=== PATIENT | female | born 1985 | race Caucasian/White ===

== ENCOUNTER 2018-02-16 08:58 | Outpatient (CLI) | payer OTHER ==
--- NOTE | 2018-02-16 10:37 | Ultrasound Report ---
ULTRASOUND PELVIC COMPLETE ULTRASOUND TRANSVAGINAL HISTORY: Abnormal vaginal bleeding. COMPARISON: No previous ultrasound. Correlation is made with a CT abdomen pelvis with contrast performed 11/23/14. TECHNIQUE: Transabdominal and transvaginal ultrasound with color doppler interrogation. FINDINGS: Uterus: The uterus is anteverted. The uterus is mildly enlarged measuring 11.3 x 4.8 x 5.4 cm. No discrete uterine fibroids are visualized. No fibroid disease was suggested on the previous CAT scan. Endometrium: The endometrium is difficult to visualize on both the transabdominal and transvaginal images. The endometrium appears to be within normal limits measuring 5 mm. Right ovary: Not visualized. Left ovary: Not visualized. No pelvic fluid or mass is identified. Normal color doppler interrogation. IMPRESSION: Limited exam. The uterus is mildly enlarged but no obvious uterine fibroids are appreciated. The ovaries are obscured. The endometrium is poorly delineated on this exam but appears to be within normal limits measuring 5 mm. If further evaluation is needed, MRI pelvis with and without contrast may provide additional information.
== END 2018-02-16 08:59 | disposition home or self-care (01) ==
LOC: US 08:58
PROVIDERS: ATTEND Obstetrics & Gynecology
DX: N92.0 Excessive and frequent menstruation with regular cycle (principal); N85.4 Malposition of uterus
CPT/HCPCS: 76830; 76856